=== PATIENT | male | born 1975 | race African-American/Black ===

== ENCOUNTER 2019-03-27 10:47 | Emergency (ER) | payer SELFPAY ==
[2014-05-10 13:44] VITALS: BP 122/77
[~2019-03-27] VITALS: Ht 175.3 cm; Wt 65.8 kg
[~2019-03-27 10:47] MED LIST: AMOX500C PO
[2019-03-27] MEDS ORDERED: HYDR25TA PO (11:10)
[2019-03-27] MEDS ORDERED: PRED50TA PO (11:10)
[2019-03-27] MEDS ORDERED: SULF1TAB24 PO (11:10)
[2019-03-27] MEDS ORDERED: MELO7.5T29 PO (11:10)
--- NOTE | 2019-03-27 11:10 | PHYS DOC ---
Past History Past Medical History: No Pertinent History, Pancreatitis Past Surgical History: No Surgical History Smoking: Cigarettes, Less than 1pk/day Alcohol Use: Heavy Additional Alcohol Information: Sixpack of beer daily Drug Use: Marijuana Adult General Chief Complaint Chief Complaint: INSECT BITE [facility] Patient is a 44-year-old male presents with left elbow discomfort. He believes he was bitten by a a wasp 2 days ago. No improvement with Benadryl. No fever. No nausea or vomiting. No difficulty breathing. No numbness or tingling. No discharge. Symptoms are mild to moderate. His last tetanus vaccine was within the past 5 years.[] Review of Systems Review of Systems Constitutional: Denies fever or chills [] Eyes: Denies change in visual acuity, redness, or eye pain [] HENT: Denies nasal congestion or sore throat [] Respiratory: Denies cough or shortness of breath [] Cardiovascular: No additional information not addressed in HPI [] GI: Denies abdominal pain, nausea, vomiting, bloody stools or diarrhea [] : Denies dysuria or hematuria [] Musculoskeletal: Denies back pain or joint pain [] Integument: See history of present illness[] Neurologic: Denies headache, focal weakness or sensory changes [] Endocrine: Denies polyuria or polydipsia [] All other systems were reviewed and found to be within normal limits, except as documented in this note. Allergies Allergies Allergies Coded Allergies Type Severity Reaction Last Updated Verified Penicillins Allergy Unknown Unknown 08/10/13 Yes Physical Exam Physical Exam Constitutional: Well developed, well nourished, no acute distress, non-toxic appearance. [] HENT: Normocephalic, atraumatic, bilateral external ears normal, oropharynx moist, no oral exudates, nose normal. [] Eyes: PERRLA, EOMI, conjunctiva normal, no discharge. [] Neck: Normal range of motion, no tenderness, supple, no stridor. [] Cardiovascular:Heart rate regular rhythm, no murmur [] Lungs & Thorax: Bilateral breath sounds clear to auscultation [] Abdomen: Not examined. [] Skin: Warm, dry, erythema and induration along the lateral aspect of his left elbow. Well demarcated edge. No fluctuance.No Axillary adenopathy. Full active range of motion of the elbow. Patient is distally neurovascularly intact. [] Back: No tenderness, no CVA tenderness. [] Extremities: No tenderness, no cyanosis, no clubbing, ROM intact, no edema. [] Neurologic: Alert and oriented X 3, normal motor function, normal sensory function, no focal deficits noted. [] Psychologic: Affect normal, judgement normal, mood normal. [] EKG EKG [] Radiology/Procedures Radiology/Procedures [] Course & Med Decision Making Course & Med Decision Making Pertinent Labs and Imaging studies reviewed. (See chart for details) Medical decision making: There is no evidence of need for incision and drainage. This appears to be either local Hymenoptera envenomation versus cellulitis. Th is does not appear to be IV drug abuse. Patient is not septic. No need for tetanus immunization updating. ED course: Patient arrived, was placed in bed, and tolerated exam well. Discussed findings and plan with patient who voiced understanding. All questions were answered. He was discharged in improved condition.[] Dragon Disclaimer Dragon Disclaimer This electronic medical record was generated, in whole or in part, using a voice recognition dictation system. Departure Departure: Impression: Primary Impression: Hymenoptera reaction Disposition: HOME, SELF-CARE Condition: STABLE Referrals: PCP,NO (PCP) Patient Instructions: Bee, Wasp, or Hornet Sting, Cellulitis Additional Instructions: Follow-up with your regular doctor in 2 days. If you do not have regular doctor list of local clinics will be provided. Apply warm compresses to the area for 15 minutes at a time, at least 4 times a day. Stop smoking. Take medication as prescribed. Return to the ER if worsening discomfort, difficulty breathing, fever of more than 101�, or any other concerns. Scripts Prednisone (PREDNISONE) 50 Mg Tablet 1 TAB PO DAILY for INFLAMMATION, #5 TAB Prov: ADDI NARANJO DO 03/27/19 Meloxicam (MELOXICAM) 7.5 Mg Tablet 7.5 MG PO DAILY for PAIN, #20 TAB Prov: ADDI NARANJO DO 03/27/19 Hydroxyzine Hcl (HYDROXYZINE HCL) 25 Mg Tablet 1 TAB PO TID for allergic reaction, #30 TAB Prov: ADDI NARANJO DO 03/27/19 Sulfamethoxazole/Trimethoprim (BACTRIM DS TABLET) 1 Each Tablet 1 TAB PO BID for cellulitis, #20 TAB Prov: ADDI NARANJO DO 03/27/19 Problem Qualifiers Primary Impression: Hymenoptera reaction Encounter type: initial encounter Injury intent: accidental or unintentional Qualified Codes: T63.441A - Toxic effect of venom of bees, accidental (unintentional), initial encounter ADDI NARANJO DO Mar 27, 2019 11:10
== END 2019-03-27 11:17 | disposition home or self-care (01) ==
LOC: ER 10:47
DX: T63.461A Toxic effect of venom of wasps, accidental (unintentional), initial encounter (principal); F17.210 Nicotine dependence, cigarettes, uncomplicated; F10.20 Alcohol dependence, uncomplicated; Z88.0 Allergy status to penicillin; Y90.9 Presence of alcohol in blood, level not specified; Y92.89 Other specified places as the place of occurrence of the external cause
CPT/HCPCS: 99283

== ENCOUNTER 2019-04-09 10:29 | Emergency (ER) | payer SELFPAY ==
[2019-03-27 10:56] VITALS: BP 122/81
[~2019-04-09] VITALS: Ht 177.8 cm; Wt 65.8 kg
[~2019-04-09 10:29] MED LIST changes: +HYDR25TA PO; +MELO7.5T29 PO; +PRED50TA PO; +SULF1TAB24 PO
--- NOTE | 2019-04-09 11:10 | PHYS DOC ---
Past History Past Medical History: No Pertinent History Past Surgical History: No Surgical History Smoking: Cigarettes, Less than 1pk/day Alcohol Use: Heavy Drug Use: Marijuana Adult General Chief Complaint Chief Complaint: RIB PAIN HPI HPI 44-year-old male presents with right rib pain. The patient was walking in his room last night around midnight when he actually walked into a door. He has had persistent right lower rib pain. It is difficult to take deep breaths. It hurts when he twists his body. He is concerned about fracture. He denies shortness of breath. He has no other injuries or complaints. Review of Systems Review of Systems Constitutional: Denies fever or chills [] Eyes: Denies change in visual acuity, redness, or eye pain [] HENT: Denies nasal congestion or sore throat [] Respiratory: Denies cough or shortness of breath [] Cardiovascular: No additional information not addressed in HPI [] GI: Denies abdominal pain, nausea, vomiting, bloody stools or diarrhea [] : Denies dysuria or hematuria [] Musculoskeletal: Right lower rib pain[] Integument: Denies rash or skin lesions [] Neurologic: Denies headache, focal weakness or sensory changes [] Endocrine: Denies polyuria or polydipsia [] All other systems were reviewed and found to be within normal limits, except as documented in this note. Allergies Allergies Allergies Coded Allergies Type Severity Reaction Last Updated Verified Penicillins Allergy Unknown Unknown 03/27/19 Yes Physical Exam Physical Exam Constitutional: Well developed, well nourished, no acute distress, non-toxic appearance. [] HENT: Normocephalic, atraumatic, bilateral external ears normal, oropharynx moist, no oral exudates, nose normal. [] Eyes: PERRLA, EOMI, conjunctiva normal, no discharge. [] Neck: Normal range of motion, no tenderness, supple, no stridor. [] Cardiovascular:Heart rate regular rhythm, no murmur [] Lungs & Thorax: Bilateral breath sounds clear to auscultation. Pain with palpation of the right lower ribs. No ecchymosis. [] Abdomen: Bowel sounds normal, soft, no tenderness, no masses, no pulsatile masses. [] Skin: Warm, dry, no erythema, no rash. [] Back: No tenderness, no CVA tenderness. [] Extremities: No tenderness, no cyanosis, no clubbing, ROM intact, no edema. [] Neurologic: Alert and oriented X 3, normal motor function, normal sensory function, no focal deficits noted. [] Psychologic: Affect normal, judgement normal, mood normal. [] EKG EKG [] Radiology/Procedures Radiology/Procedures [] Impressions: Three-view right rib detail series and PA view chest x-ray Clinical indications: Patient ran into door. Right lower rib pain. FINDINGS: No acute right rib fracture is evident. Chest x-ray demonstrates no acute lung infiltrate or pleural effusion or pulmonary edema or pneumothorax. Heart size is unremarkable. 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 Pulmonary vasculature is unremarkable. IMPRESSION: No acute right rib fracture. 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 There may be an increased risk of cardiac anomalies with this finding. Electronically signed by: Kathy Pina MD (04/09/2019 11:15 AM) [id number] DICTATED AND SIGNED BY: KATHY PINA MD DATE: 04/09/19 1115 CC: VINCENZO YU DO; PCP,NO ~ Course & Med Decision Making Course & Med Decision Making Pertinent Labs and Imaging studies reviewed. (See chart for details) The patient does not have any rib fractures. Incidentally, he appears a right- sided aortic arch. I have given the patient currently of his official read to take to his PCP. I will discharge the patient with a short course of [place] 5/325 for his discomfort. He appears to just have rib contusion. He is stable for discharge at this time. [] Dragon Disclaimer Dragon Disclaimer This electronic medical record was generated, in whole or in part, using a voice recognition dictation system. Departure Departure: Impression: Primary Impression: Contusion of rib on right side Disposition: HOME, SELF-CARE Condition: STABLE Referrals: PCP,NO (PCP) Patient Instructions: Rib Contusion Scripts Hydrocodone Bit/Acetaminophen (NORCO 5-325 TABLET) 1 Each Tablet 1 TAB PO PRN Q6HRS PRN for PAIN, #14 TAB 0 Refills Prov: VINCENZO YU DO 04/09/19 Problem Qualifiers Primary Impression: Contusion of rib on right side Encounter type: initial encounter Qualified Codes: S20.211A - Contusion of right front wall of thorax, initial encounter VINCENZO YU DO Apr 09, 2019 11:10
--- NOTE | 2019-04-09 11:18 | RAD ---
Three-view right rib detail series and PA view chest x-ray Clinical indications: Patient ran into door. Right lower rib pain. FINDINGS: No acute right rib fracture is evident. Chest x-ray demonstrates no acute lung infiltrate or pleural effusion or pulmonary edema or pneumothorax. Heart size is unremarkable. 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 Pulmonary vasculature is unremarkable. IMPRESSION: No acute right rib fracture. 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 There may be an increased risk of cardiac anomalies with this finding. Electronically signed by: Hector Pina MD (04/09/2019 11:15 AM) [id number]
[2019-04-09] MEDS ORDERED: HYDR-3165 PO (11:27)
== END 2019-04-09 11:35 | disposition home or self-care (01) ==
LOC: ER 10:29
DX: S20.211A Contusion of right front wall of thorax, initial encounter (principal); F17.210 Nicotine dependence, cigarettes, uncomplicated; F10.20 Alcohol dependence, uncomplicated; Z88.0 Allergy status to penicillin; Y90.9 Presence of alcohol in blood, level not specified; W22.09XA Striking against other stationary object, initial encounter; Y93.01 Activity, walking, marching and hiking; Y92.89 Other specified places as the place of occurrence of the external cause; Y99.8 Other external cause status
CPT/HCPCS: 71101; 99284

== ENCOUNTER 2019-08-02 09:00 | Emergency (ER) | payer SELFPAY ==
[~2019-08-02 09:00] MED LIST changes: +HYDR-3165 PO
[2019-08-02 09:10] VITALS: BP 117/78
--- NOTE | 2019-08-02 09:16 | PHYS DOC ---
Past History Past Medical History: No Pertinent History Past Surgical History: Appendectomy Smoking: Cigarettes, Less than 1pk/day Alcohol Use: Heavy Drug Use: Marijuana Adult General Chief Complaint Chief Complaint: LOWER EXT PAIN HPI HPI Patient is a 44-year-old male presents complaining of left foot pain. Patient does not recall any injury. He noted it on waking this morning. No pain medicines nor ice nor heat were applied. It does get worse with walking. He is able to weight-bear. No swelling or bruising is noted. No numbness or tingling. Pain is moderate to severe in intensity[] Review of Systems Review of Systems Constitutional: Denies fever or chills [] Eyes: Denies change in visual acuity, redness, or eye pain [] HENT: Denies nasal congestion or sore throat [] Respiratory: Denies cough or shortness of breath [] Cardiovascular: No chest pain or palpitations[] GI: Denies abdominal pain, nausea, vomiting, bloody stools or diarrhea [] : Denies dysuria or hematuria [] Musculoskeletal: Denies back pain, see history of present illness[] Integument: Denies rash or skin lesions [] Neurologic: Denies headache, focal weakness or sensory changes [] Endocrine: Denies polyuria or polydipsia [] All other systems were reviewed and found to be within normal limits, except as documented in this note. Current Medications Current Medications Current Medications Medications (Trade) Dose Ordered Sig/Stephen Start Time Stop Time Status Last Admin Dose Admin Ibuprofen (Motrin) 600 mg 1X ONCE 08/02/19 09:15 08/02/19 09:16 UNV Allergies Allergies Allergies Coded Allergies Type Severity Reaction Last Updated Verified Penicillins Allergy Unknown Unknown 03/27/19 Yes Physical Exam Physical Exam Constitutional: Well developed, well nourished, no acute distress, non-toxic appearance. [] HENT: Normocephalic, atraumatic, bilateral external ears normal, oropharynx m oist, no oral exudates, nose normal. [] Eyes: PERRLA, EOMI, conjunctiva normal, no discharge. [] Neck: Normal range of motion, no tenderness, supple, no stridor. [] Cardiovascular:Heart rate regular rhythm, no murmur [] Lungs & Thorax: Bilateral breath sounds clear to auscultation [] Abdomen: Bowel sounds normal, soft, no tenderness, no masses, no pulsatile masses. [] Skin: Warm, dry, no erythema, no rash. [] Back: No tenderness, no CVA tenderness. [] Extremities: Left foot has tenderness in the midfoot region in the middle of the foot to the lateral side. There is no specific base of the fifth metatarsal tenderness. No crepitus. No bruising. No ankle tenderness. A joint above and a joined below was evaluated and were normal. He was distally neurovascularly intact. The other 3 extremities show: No tenderness, no cyanosis, no clubbing, ROM intact, no edema. [] Neurologic: Alert and oriented X 3, normal motor function, normal sensory function, no focal deficits noted. [] Psychologic: Affect normal, judgement normal, mood normal. [] Current Patient Data Vital Signs Vital Signs Date Time Temp Pulse Resp B/P (MAP) Pulse Ox O2 Delivery O2 Flow Rate FiO2 08/02/19 09:10 87 18 97 Room Air EKG EKG [] Radiology/Procedures Radiology/Procedures Three-view x-ray of the left foot shows no evidence of a fracture or dislocation.[] Course & Med Decision Making Course & Med Decision Making Pertinent Labs and Imaging studies reviewed. (See chart for details) Emergency department course: Patient arrived, was placed in bed, and tolerated exam well. He was transported to and from radiology with any complications. He was given pain medicine in the emergency department. Findings and plan were discussed with the patient. He voiced understanding. A postop shoe was applied. He was distally neurovascularly intact after splint application. He was discharged in improved condition with all questions answered. Medical decision making: There is no evidence of a fracture or dislocation. No evidence of neurologic or vascular compromise. No radiopaque foreign body. [] Dragon Disclaimer Dragon Disclaimer This electronic medical record was generated, in whole or in part, using a voice recognition dictation system. Departure Departure: Impression: Primary Impression: Left foot pain Disposition: 01 HOME, SELF-CARE Condition: IMPROVED Referrals: PCPSELENA (PCP) Patient Instructions: Musculoskeletal Pain Additional Instructions: Follow-up with your regular doctor in 2 days. If you do not have regular doctor list of local clinics will be provided. Take the medicine as prescribed. Apply warm compresses for 15 minutes at a time, 4 times a day. Stop smoking! Return to the emergency department if worsening pain, weakness, or any other concerns. Scripts Meloxicam (MELOXICAM) 7.5 Mg Tablet 7.5 MG PO DAILY for PAIN, #20 TAB Prov: ADDI NARANJO DO 08/02/19 ADDI NARANJO DO Aug 02, 2019 09:16
[2019-08-02] MEDS ORDERED: MELO7.5T29 PO (09:28)
[2019-08-02] MEDS ORDERED: IBUPROFEN 600 MG TABLET. PO ONE (09:30)
--- NOTE | 2019-08-02 09:45 | RAD ---
Examination: 3 views of the left foot HISTORY: History of mid, lateral pain COMPARISON: None available FINDINGS: The alignment of the tarsal bones, tarsometatarsal joints, metatarsophalangeal joints, interphalangeal joints grossly appears unremarkable. Mild hallux valgus is identified. Mild degenerative changes first MTP joint. IMPRESSION: 1. No acute osseous findings. 2. Mild hallux valgus. Electronically signed by: Victor Hugo Marquez MD (08/02/2019 9:42 AM) [facility]
== END 2019-08-02 09:45 | disposition home or self-care (01) ==
LOC: ER 09:00
DX: M79.672 Pain in left foot (principal); F10.20 Alcohol dependence, uncomplicated; F17.210 Nicotine dependence, cigarettes, uncomplicated; Z88.0 Allergy status to penicillin; Y90.9 Presence of alcohol in blood, level not specified
CPT/HCPCS: 73630; 99284

== ENCOUNTER 2019-09-24 09:16 | Emergency (ER) | payer SELFPAY ==
[~2019-09-24] VITALS: Ht 175.3 cm; Wt 65.0 kg
[2019-09-24 09:27] VITALS: BP 137/95
[2019-09-24] MEDS ORDERED: KETOROLAC 30 MG/ML VIAL. ONE (09:36)
[2019-09-24] MEDS ORDERED: KETOROLAC 60 MG/2 ML VIAL. IM ONE (09:45)
--- NOTE | 2019-09-24 10:02 | RAD ---
Examination: 2 views of the left shoulder HISTORY: History of left shoulder pain COMPARISON: None available FINDINGS: The humerus head is within the glenoid. Mild degenerative changes identified in the glenohumeral joint, acromioclavicular joints. IMPRESSION: No acute osseous findings. Electronically signed by: Victor Hugo Marquez MD (09/24/2019 9:59 AM) [facility] – [place], [place]
--- NOTE | 2019-09-24 10:17 | PHYS DOC ---
Past History Past Medical History: No Pertinent History Past Surgical History: No Surgical History Smoking: Cigarettes, Less than 1pk/day Alcohol Use: Heavy Drug Use: Marijuana Adult General Chief Complaint Chief Complaint: [facility] HPI Patient is a 44-year-old male with shoulder pain onset 2 weeks ago left shoulder hurts more to lie on it hard to sleep hurts more lifted up over his head hurts more to touch it. Especially under the armpit. Patient is a smoker he does drink alcohol he smokes marijuana he denies any other drugs no IV drugs no fever denies blunt trauma not having any anginal symptoms no abdominal pain. Patient does not have a primary care doctor no daily medications. Symptoms are moderate slowly worsening with tract time he tried a heating pad with minimal relief Review of Systems Review of Systems Constitutional: Denies fever or chills [] Eyes: Denies change in visual acuity, redness, or eye pain [] HENT: Denies nasal congestion or sore throat [] Respiratory: Denies cough or shortness of breath [] Cardiovascular: No additional information not addressed in HPI [] All other systems were reviewed and found to be within normal limits, except as documented in this note. Current Medications Current Medications Current Medications Medications (Trade) Dose Ordered Sig/Stephen Start Time Stop Time Status Last Admin Dose Admin Ketorolac Tromethamine (Toradol 30mg Vial) 30 mg STK-MED ONCE 09/24/19 09:36 09/24/19 09:36 DC Ketorolac Tromethamine (Toradol Im) 30 mg 1X ONCE 09/24/19 09:45 09/24/19 09:46 DC 09/24/19 09:40 30 MG Allergies Allergies Allergies Coded Allergies Type Severity Reaction Last Updated Verified Penicillins Allergy Unknown Unknown 03/27/19 Yes Physical Exam Physical Exam Constitutional: Well developed, mild cachexia noted HENT: Normocephalic, atraumatic, bilateral external ears normal, oropharynx moist, no oral exudates, nose normal. [] Eyes: PERRLA, EOMI, conjunctiva normal, no discharge. [] Neck: Normal range of motion, no tenderness, supple, no stridor. [] Cardiovascular:Heart rate regular rhythm, no murmur [] Lungs & Thorax: Bilateral breath sounds clear to auscultation [] Abdomen: Bowel sounds normal, soft, no tenderness, no masses, no pulsatile masses. [] Skin: Acne noted Back: No tenderness, no CVA tenderness. [] Extremities: Tenderness to palpation diffusely about the left shoulder range of motion is actually fairly intact but elevation of the shoulder above 180 does lead to reproducing of the pain. In addition palpation of the junction of the left pectoralis muscle at the level of the shoulder also leads to some discomfort. Abdominal examination is nontender. Patient is neurologically intact distally in the affected extremity radial pulses present and sensation is intact. Neurologic: Alert and oriented X 3, normal motor function, normal sensory function, no focal deficits noted. [] Psychologic: Affect normal, judgement normal, mood normal. [] Current Patient Data Vital Signs Vital Signs Date Time Temp Pulse Resp B/P (MAP) Pulse Ox O2 Delivery O2 Flow Rate FiO2 09/24/19 09:27 97.9 77 18 137/95 (109) 99 Room Air EKG EKG [] Radiology/Procedures Radiology/Procedures [] Course & Med Decision Making Course & Med Decision Making Pertinent Labs and Imaging studies reviewed. (See chart for details) []X-ray revealed by the radiologist negative acute. Patient likely has some sort of internal arrangement of the left shoulder perhaps a rotator cuff tendinopathy. At this point time medical screening exam is complete patient is unlikely to have any significant medical condition to lead to morbidity mortality loss of life or limb. Patient is having no chest pain no anginal symptoms does not sound cardiac at all reproducible on examination and it's been going on for 2 weeks or more Dragon Disclaimer Dragon Disclaimer This electronic medical record was generated, in whole or in part, using a voice recognition dictation system. Departure Departure: Impression: Primary Impression: Shoulder pain Disposition: HOME, SELF-CARE Condition: STABLE Referrals: PCP,SELENA (PCP) COLLIN LI MD Sep 24, 2019 10:17
== END 2019-09-24 10:52 | disposition home or self-care (01) ==
LOC: ER 09:16
DX: M25.512 Pain in left shoulder (principal); F17.210 Nicotine dependence, cigarettes, uncomplicated; Z88.0 Allergy status to penicillin
CPT/HCPCS: 73030; 96372; 99283; J1885

== ENCOUNTER 2020-09-12 08:25 | Emergency (ER) | payer SELFPAY ==
[~2020-09-12] VITALS: Ht 175.3 cm; Wt 65.0 kg
[2020-09-12 08:26] VITALS: BP 102/72
[2020-09-12] MEDS ORDERED: ONDANSETRON ODT 4 MG TAB.RAPDIS PO ONE (08:45)
[2020-09-12] MEDS ORDERED: DEXAMETHASONE 4 MG TABLET PO ONE (08:45)
[2020-09-12] MEDS ORDERED: ONDA4TAB12 PO (08:56)
[2020-09-12] MEDS ORDERED: PRED20TA PO (08:56)
[2020-09-12] MEDS ORDERED: PERM60CR12 TP (08:56)
--- NOTE | 2020-09-12 09:05 | PHYS DOC ---
Past History Past Medical History: No Pertinent History Past Surgical History: No Surgical History Smoking: Cigarettes, Less than 1pk/day Alcohol Use: Heavy Drug Use: Marijuana General Adult EDM: Chief Complaint: COUGH HPI: HPI: 45-year-old male presents with 1 day history of subjective fever and chills with associated cough and body aches. Reports yesterday did notice some nasal congestion. Reports also this morning with some nausea and vomiting. Denies known sick contacts. Denies known exposure to COVID-19. Patient also reports 1 week history of pruritic rash primarily to his forearms. Reports concerned that "something is biting me ". Review of Systems: Review of Systems: Constitutional: Reports subjective fever and chills and body aches Eyes: Denies redness or eye pain HENT: Reports nasal congestion; denies sore throat Respiratory: Reports cough; denies shortness of breath Cardiovascular: Denies chest pain or palpitations GI: Denies abdominal pain; reports nausea and vomiting : Denies dysuria or hematuria Musculoskeletal: Denies back pain or joint pain Integument: Reports pruritic rash Neurologic: Denies headache, focal weakness or sensory changes Complete systems were reviewed and found to be within normal limits, except as documented in this note. Current Medications: Current Meds: Current Medications Medications (Trade) Dose Ordered Sig/Stephen Start Time Stop Time Status Last Admin Dose Admin Dexamethasone (Decadron) 10 mg 1X ONCE 09/12/20 08:45 09/12/20 08:46 UNV Ondansetron HCl (Zofran Odt) 4 mg 1X ONCE 09/12/20 08:45 09/12/20 08:46 UNV Allergies: Allergies: Allergies Coded Allergies Type Severity Reaction Last Updated Verified Penicillins Allergy Unknown Unknown 03/27/19 Yes Physical Exam: PE: Constitutional: Well developed, well nourished, no acute distress, non-toxic appearance HENT: Normocephalic, atraumatic Eyes: Conjunctiva normal, no discharge Neck: Normal range of motion, supple Lungs & Thorax: No respiratory distress, equal chest rise and fall Abdomen: Soft, no tenderness, no guarding/rebound tenderness/distention Skin: Warm, dry, no erythema, healing pruritic rash noted to bilateral forearms Extremities: No tenderness, ROM intact, no edema Neurologic: Alert and oriented X 3, no focal deficits noted Psychologic: Affect normal, judgment normal EKG: EKG: [] Radiology/Procedures: Radiology/Procedures: PROCEDURE: CHEST AP ONLY AP chest. HISTORY: Cough, Covid-19 AP view was taken of the chest. Lungs are clear. Heart is normal in size. There is no effusion. IMPRESSION: 1. No acute chest disease. Electronically signed by: Callum Grant MD (09/12/2020 9:51 AM) [id number] Course & Med Decision Making: Course & Med Decision Making Pertinent Labs and Imaging studies reviewed. (See chart for details) Patient with concern for possible COVID-19. COVID-[address] COVID-19 testing pending. Chest x-ray without acute process. Symptomatic treatment provided. Patient also with some pruritic rash. Steroid provided. Cannot fully exclude scabies. Will prescribe permethrin. Patient stable for discharge with outpatient follow-up with PCP. Discussed findings and plan with patient, who acknowledges understanding and agreement. COVID-19 CRITERIA: The patient was evaluated during the global COVID-19 pandemic, and that diagnosis was suspected/considered upon their initial presentation. Their evaluation, treatment and testing was consistent with current guidelines for patients who present with complaints or symptoms that may be related to COVID-19. Jess Disclaimer: Dragon Disclaimer: This electronic medical record was generated, in whole or in part, using a voice recognition dictation system. Departure Departure: Impression: Primary Impression: Suspected COVID-19 virus infection Additional Impressions: Nausea and vomiting Qualified Codes: R11.2 - Nausea with vomiting, unspecified Pruritic rash Disposition: 01 ME HOME SELF CARE/HOMELESS Condition: STABLE Referrals: PCP,NO (PCP) Patient Instructions: Clear Liquid Diet, [id number], Nausea and Vomiting, [id number], Rash, Ggba-ke-Igde, Scabies, Viral Syndrome Additional Instructions: You have been tested for or diagnosed with COVID-19. It is an infection caused by a new type of coronavirus. COVID-19 will cause cold-like or mild flu symptoms in most. It can cause more severe symptoms like problems breathing in some. There is no treatment for COVID-19. The body will clear the infection over time. Self-care will help to ease discomfort. Steps to Take: Self-Care Rest as needed. Healthy habits may help you feel better. Steps include: Choose healthy foods including fruits and vegetables. Drink water throughout the day. Get plenty of sleep each night. If you smoke, try to quit. It may ease breathing. Avoid alcohol. Keep Others Healthy The virus can spread to others. Droplets are released every time you sneeze or cough. The droplets can get into the mouth, nose, or eyes of people near you and lead to infection. To lower the chances of spreading COVID-19 to others: Stay at home until your doctor has said it is safe to leave. If you tested positive this will mean staying isolated until both of the following are true: At least 7 days have passed since the start of illness. You are free of fever for at least 72 hours without the use of medicine. During this time: - Avoid public areas, events, or transportation. Do not return to work or school until your doctor has said it is safe to do so. - Call ahead if you need to go to a medical center. Let them know you may have COVID-19. It will help them guide you where to go. They may also ask you to wear a facemask when you come to the office. - If you call for emergency medical services, let them know you may have COVID- 19. While at home: - Try to avoid close contact with others. Stay about 6 feet away. - If possible, spend most of your time in a separate room from others. - Use a face mask if you will be in close contact with others such as sharing a room or vehicle. - Have someone wipe down common surfaces in the home. Use household lacquer mixer every day on areas like doorknobs, counters, or sinks. - Cough or sneeze into a tissue. Throw the tissue away right after use. If a tissue is not available, cough or sneeze into your elbow. - Wash your hands often. Wash them after sneezing or coughing. Use soap and water and wash for at least 20 seconds. Alcohol based hand telephone cleaner can be used if soap and water is not available. - Do not prepare food for others. Avoid sharing personal items like forks, spoons, or toothbrushes. - Avoid close contact with pets while you are sick. There is no evidence of the virus passing to pets. This is a safety step until more is known about this virus. Isolation can be frustrating. Social interaction can help. Keep in touch with friends and family through phone and tech options. You can still interact with others in your home, just keep a safe distance of about 6 feet. Follow-up: Your doctors office will check in with you to see if there are any changes in your health. You may be asked to keep track of symptoms to share with them. They will also let you know when you are clear to be in public again. Problems to Look Out For: Contact your doctor if your recovery is not going as you expect. Get emergency care if you have problems such as: - Trouble breathing - Nonstop chest pain or pressure - Changes in awareness, confusion, or problems waking - Lips or face have bluish color - Worsening of symptoms If you think you have an emergency, call for emergency medical services right away. As taken from [facility] Permethrin (PERMETHRIN) 60 Gm Cream..g. 1 KASIA TP ONCE for Rash, #60 GM Leave on for 12 hours. Prov: JULIA ROJO DO 09/12/20 Prednisone (PREDNISONE) 20 Mg Tablet 2 TAB PO DAILY for Rash, #8 TAB Start this prescription tomorrow, Saturday09/13/20 Prov: JUILA ROJO DO 09/12/20 Ondansetron (ONDANSETRON ODT) 4 Mg Tab.rapdis 1 TAB PO PRN Q6-8HRS PRN for NAUSEA, #16 TAB Prov: JULIA ROJO DO 09/12/20 COVID-19 Assessment COVID-19 Patient Risks: Age 65 or older: No Sign of co-morbidity: No Exp to person + for COVID: No Exp to PUI: No Travel from affected area: No Lower respiratory symptoms: Yes Fever: Yes Other: Yes PPE Use: Full PPE with N95 mask or PAPR: Yes JULIA ROJO DO Sep 12, 2020 09:05
--- NOTE | 2020-09-12 10:01 | RAD ---
AP chest. HISTORY: Cough, Covid-19 AP view was taken of the chest. Lungs are clear. Heart is normal in size. There is no effusion. IMPRESSION: 1. No acute chest disease. Electronically signed by: Callum Grant MD (09/12/2020 9:51 AM) [id number]
== END 2020-09-12 09:39 | disposition home or self-care (01) ==
LOC: ER 08:25
DX: R11.2 Nausea with vomiting, unspecified (principal); L29.9 Pruritus, unspecified; R21 Rash and other nonspecific skin eruption; F17.210 Nicotine dependence, cigarettes, uncomplicated; F10.20 Alcohol dependence, uncomplicated; Z20.822 Contact with and (suspected) exposure to COVID-19; Z88.0 Allergy status to penicillin; Y90.9 Presence of alcohol in blood, level not specified
CPT/HCPCS: 71045; 99284; C9803; J8540; Q0162; U0003

== ENCOUNTER 2020-09-20 20:24 | Emergency (ER) | payer SELFPAY ==
[~2020-09-20] VITALS: Ht 175.3 cm; Wt 65.0 kg
[~2020-09-20 20:24] MED LIST changes: +ONDA4TAB12 PO; +PERM60CR12 TP; +PRED20TA PO
--- NOTE | 2020-09-20 20:57 | EKG ---
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
--- NOTE | 2020-09-20 21:14 | PHYS DOC ---
Past History Past Medical History: Arthritis Past Surgical History: No Surgical History Smoking: Cigarettes, Less than 1pk/day Alcohol Use: Heavy Drug Use: Marijuana Adult General Chief Complaint Chief Complaint: CHEST PAIN HPI HPI Patient is a 45-year-old male presents emergency department complaining of chest pains for the past hour. Patient states that it is on the left side of his chest and does not radiate. Patient denies diaphoretic episode, denies shortness of breath. Patient states that he was seen here last Saturday for a cough and scabies. Patient states his cough has resolved and his scabies problem has resolved. Patient states he is also having low back pain that does not radiate. Patient denies any loss of bowel or bladder, patient denies any numbness or tingling to his buttocks or legs patient states he fears he might have kidney problems as his father had end-stage kidney disease when he of liver failure. Patient reports his pain a 6/10 on a 1-10 pain scale. Patient denies chest pain or chest discomfort or shortness of breath or chest p alpitations at this time. Patient denies nasal congestion or chest congestion. Patient denies abdominal pain, nausea, vomiting, diarrhea, or constipation. Patient denies COVID-19 symptoms, states he had a COVID-19 test just this past week which was negative and does not wish to be tested today patient denies having a flu shot in 2019, patient has not had a COVID-19 virus immunization. Review of Systems Review of Systems 14 body systems of review of systems have been reviewed. See HPI for pertinent positives and negative responses, otherwise all other systems are negative, nonpertinent or noncontributory. Family History Family History Patient reports his mother of cancer however he does not know what type, patient states his dad had a history of kidney failure but of liver disease. Allergies Allergies Allergies Coded Allergies Type Severity Reaction Last Updated Verified Penicillins Allergy Unknown Unknown 03/27/19 Yes Physical Exam Physical Exam Constitutional: Well developed, well nourished, no acute distress, non-toxic appearance. 45-year-old male in no apparent distress, patient is complaint of pain exceeds his physical appearance. HENT: Normocephalic, atraumatic, bilateral external ears normal, oropharynx moist, no oral exudates, nose normal. Eyes: PERRLA, EOMI, conjunctiva normal, no discharge. Neck: Normal range of motion, no tenderness, supple, no stridor. Cardiovascular:Heart rate regular rhythm, no murmur, heart sounds S1-S2. Lungs & Thorax: Bilateral breath sounds clear to auscultation all lung laboy. Patient denies chest pain at this time. Abdomen: Bowel sounds normal, soft, no tenderness, no masses, no pulsatile masses. Skin: Warm, dry, no erythema, no rash. Back: No left-sided or right-sided CVA tenderness, left and right sided lumbar tenderness to palpation, no midline spine tenderness appreciated. No numbness or tingling down the lower extremities, neurovascular intact, 2+ dorsalis pedis/posterior tibial pulses, distal cap refill less than 2 seconds. Extremities: No tenderness, no cyanosis, no clubbing, ROM intact, no edema. Neurologic: Alert and oriented X 3, normal motor function, normal sensory function, no focal deficits noted. Psychologic: Affect normal, judgement normal, mood normal. Current Patient Data Lab Results Laboratory Tests Test 09/20/20 20:55 White Blood Count 10.0 x10^3/uL Red Blood Count 4.50 x10^6/uL Hemoglobin 14.6 g/dL Hematocrit 44.3 % Mean Corpuscular Volume 99 fL Mean Corpuscular Hemoglobin 33 pg Mean Corpuscular Hemoglobin Concent 33 g/dL Red Cell Distribution Width 14.2 % Platelet Count 265 x10^3/uL Neutrophils (%) (Auto) 73 % Lymphocytes (%) (Auto) 20 % Monocytes (%) (Auto) 7 % Eosinophils (%) (Auto) 1 % Basophils (%) (Auto) 0 % Neutrophils # (Auto) 7.3 x10^3uL Lymphocytes # (Auto) 2.0 x10^3/uL Monocytes # (Auto) 0.7 x10^3/uL Eosinophils # (Auto) 0.0 x10^3/uL Basophils # (Auto) 0.0 x10^3/uL Sodium Level 139 mmol/L Potassium Level 3.6 mmol/L Chloride Level 102 mmol/L Carbon Dioxide Level 28 mmol/L Anion Gap 9 Blood Urea Nitrogen 9 mg/dL Creatinine 0.9 mg/dL Estimated GFR (Cockcroft-Gault) 110.4 BUN/Creatinine Ratio 10 Glucose Level 104 mg/dL Calcium Level 8.5 mg/dL Magnesium Level 2.2 mg/dL Total Bilirubin 0.8 mg/dL Aspartate Amino Transf (AST/SGOT) 18 U/L Alanine Aminotransferase (ALT/SGPT) 20 U/L Alkaline Phosphatase 66 U/L Creatine Kinase 74 U/L Creatine Kinase MB (Mass) < 0.5 ng/mL Creatine Kinase MB Relative Index 0.7 % Troponin I Quantitative < 0.017 ng/mL Total Protein 7.4 g/dL Albumin 3.7 g/dL Albumin/Globulin Ratio 1.0 Current Medications Medications (Trade) Dose Ordered Sig/Stephen Route PRN Reason Start Time Stop Time Status Last Admin Dose Admin Lactated Ringer's 1,000 ml @ 0 mls/hr 1X ONCE IV 09/20/20 21:15 09/20/20 21:23 DC 09/20/20 21:15 Ketorolac Tromethamine (Toradol 30mg Vial) 30 mg 1X ONCE IVP 09/20/20 22:00 09/20/20 22:03 DC Acetaminophen/ Hydrocodone Bitart (Lortab 5/325) 2 tab 1X ONCE PO 09/20/20 22:00 09/20/20 22:03 DC EKG EKG EKG performed at 2043 by respiratory therapy staff, shows a normal sinus rhythm without ectopy at a heart rate of 74 bpm, Q TC interval 0.411, KS interval 0.168, no acute STEMI, no ACS, no acute ischemia appreciated, EKG interpreted by ED attending physician Dr. Burgos. Radiology/Procedures Radiology/Procedures []PATIENT: ARNAUD LUNDBERG LACCOUNT: [id number]#: [id number] : 1975 LOCATION: ER AGE: 45 SEX: M EXAM STATUS: REG ER ORD. PHYSICIAN: JULIA MCODNOUGH APRN REASON: CHEST PAIN PROCEDURE: CHEST PA & LATERAL XR CHEST 2V Technique: PA and lateral views of the chest were obtained. Clinical History: Reason: CHEST PAIN / Spl. Instructions: / History: Comparison: September 12, 2020. Findings: The heart and pulmonary vasculature appear within normal limits. The lungs are clear. The pleural margins are clear. Impression: No acute chest process is seen. Electronically signed by: Nataliia Kruger III, MD (09/20/2020 9:11 PM) [facility] DICTATED AND SIGNED BY: NATALIIA KRUGER III, MD DATE: 09/20/202109 CC: JULIA MCDONOUGH APRN; EMERGENCY,DEPARTMENT; PCP,NO ~MTH0 0 Heart Score HEART Score for Chest Pain: HEART Score for Chest Pain Response (Comments) Value History Slighlty/Non-Suspicious 0 ECG Normal 0 Age >45 - < 65 1 Risk Factors 1 or 2 Risk Factors 1 Troponin < Normal Limit 0 Total 2 Risk Factors: Risk Factors: DM, Current or recent (<one month) smoker, HTN, HLP, family history of CAD, obesity. Risk Scores: Risk Factors: DM, Current or recent (<one month) smoker, HTN, HLP, family history of CAD, obesity. Course & Med Decision Making Course & Med Decision Making Pertinent Labs and Imaging studies reviewed. (See chart for details) 45-year-old male, vital signs reviewed, presents emergency department complaining of chest pains and low back pains. Patient has concerned that this is either his heart or his kidneys. Patient's physical examination was unremarkable. No saddle anesthesia, unlikely cauda equina. An ER work-up was initiated, EKG, cardiac labs, chest x-ray, urine assay. Patient's chest x-ray was unremarkable, patient's serum lab work was unremarkable, patient did not give a urine sample. Discussed findings with patient, patient states that he has having no pain at this time. Patient gave verbal understanding of discharge home instructions, follow-up with primary care for ongoing aches and pains, return to ER precautions and concerns, was discharged home without incident. Patient's chest pain is most likely chest wall pain related to coughing 2 weeks ago, patient does have a history of sciatica pain, patient's back pain most likely lumbago. Dragon Disclaimer Dragon Disclaimer This electronic medical record was generated, in whole or in part, using a voice recognition dictation system. Departure Departure: Impression: Primary Impression: Chest wall pain Additional Impression: Lumbago Disposition: 01 DC HOME SELF CARE/HOMELESS Condition: GOOD Referrals: PCP,NO (PCP) Patient Instructions: Back Pain in , Chest Wall Pain Additional Instructions: Please take prescriptions as directed, follow-up with your primary care doctor for ongoing aches and pains, return to the emergency department for worsening symptoms or other concerns. EMERGENCY DEPARTMENT GENERAL DISCHARGE INSTRUCTIONS Thank you for coming to [facility] (ED) today and trusting us with you care. We trust that you had a positivie experience in our Emergency Department. If you wish to speak to the department management, you may call the director at [phone]. YOUR FOLLOW UP INSTRUCTIONS ARE FOLLOWS: 1. Do you have a private Doctor? If you do not have a private doctor, please ask for a resource list of physicians or clinics that may be able to assist you with follow up care. 2. The Emergency Physician has interpreted your x-rays. The X-Ray specialist will also review them. If there is a change in the findings, you will be notified in 48 hours when at all possible. 3. A lab test or culture has been done, your results will be reviewed and you will be notified if you need a change in treatment. ADDITIONAL INSTRUCTIONS AND INFORMATION: 1. Your care today has been supervised by a physician who is specially trained in emergency care. Many problems require more than one evaluation for a complete diagnosis and treatment. We recommend that you schedule your follow up appointment as recommended to ensure complete treatment of you illness or injury. If you are unable to obtain follow up care and continue to have a problem, or if your condition worsens, we recommend that you return to the ED. 2. We are not able to safely determine your condition over the phone nor are we able to give sound medical advice over the phone. For these safety reasons, if you call for medical advice we will ask you to come to the ED for further evaluation. 3. If you have any questions regarding these discharge instructions please call the ED at [phone]. SAFETY INFORMATION: In the interest of safety, wellness, and injury prevention; we encourage you to wear your sealbelt, if you smoke; quite smoking, and we encourage family to use a protective helmet for bicycling and other sporting events that present an increased risk for head injury. IF YOUR SYMPTOMS WORSEN OR NEW SYMPTOMS DEVELOP, OR YOU HAVE CONCERNS ABOUT YOUR CONDITION; OR IF YOUR CONDITION WORSENS WHILE YOU ARE WAITING FOR YOUR FOLLOW UP APPOINTMENT; EITHER CONTACT YOUR PRIMARY CARE DOCTOR, THE PHYSICIAN WHOSE NAME AND NUMBER YOU WERE GIVEN, OR RETURN TO THE ED IMMEDIATELY. Scripts Ibuprofen (IBUPROFEN) 600 Mg Tablet 600 MG PO TID PRN PRN for PAIN, #20 TAB 0 Refills Prov: JULIA MCDONOUGH APRN 09/20/20 Cyclobenzaprine Hcl (CYCLOBENZAPRINE HCL) 10 Mg Tablet 1 TAB PO TID PRN PRN for PAIN, #12 TAB 0 Refills Prov: JULIA MCDONOUGH APRN 09/20/20 Problem Qualifiers Additional Impression: Lumbago Chronicity: acute Back pain laterality: bilateral Sciatica presence: without sciatica Qualified Codes: M54.5 - Low back pain JULIA MCDONOUGH APRN Sep 20, 2020 21:14
[2020-09-20] MEDS ORDERED: IV RINGERS SOLUTION,LACTATED 1,000 ML IV ONE (21:15)
[2020-09-20 21:33] LABS: BASO % 0 % (0-3); EOS % 1 % (0-3); HEMATOCRIT 44.3 % (39.0-53.0); HEMOGLOBIN 14.6 g/dL (13.0-17.5); LYMPH % 20 % (24-48); MEAN CORPUSCULAR HEMOGLOBIN 33 pg (25-35); MEAN CORPUSCULAR HGB CONC 33 g/dL (31-37); MEAN CORPUSCULAR VOLUME 99 fL (79-100); MONO # 0.7 x10^3/uL (0.0-1.1); MONO % 7 % (0-9); NEUT # 7.3 x10^3uL (1.8-7.7); NEUT % 73 % (31-73); PLATELET COUNT 265 x10^3/uL (140-400); RED CELL DISTRIBUTION WIDTH 14.2 % (11.5-14.5)
[2020-09-20 21:36] LABS: ANION GAP 9 (6-14); BLOOD UREA NITROGEN 9 mg/dL (8-26); BUN/CREATININE RATIO 10 (6-20); CALCIUM 8.5 mg/dL (8.5-10.1); CARBON DIOXIDE 28 mmol/L (21-32); CHLORIDE 102 mmol/L (98-107); CREATININE 0.9 mg/dL (0.7-1.3); GFR 110.4; GLUCOSE 104 mg/dL (70-99); POTASSIUM 3.6 mmol/L (3.5-5.1); SODIUM 139 mmol/L (136-145)
[2020-09-20 21:51] LABS: ALBUMIN 3.7 g/dL (3.4-5.0); ALK PHOS 66 U/L (46-116); ALT (SGPT) 20 U/L (16-63); AST (SGOT) 18 U/L (15-37); MAGNESIUM 2.2 mg/dL (1.8-2.4); TOTAL BILIRUBIN 0.8 mg/dL (0.2-1.0); TOTAL PROTEIN 7.4 g/dL (6.4-8.2)
[2020-09-20] MEDS ORDERED: HYDROcodone/APAP 5/325MG 1 TAB TABLET PO ONE (22:00)
[2020-09-20] MEDS ORDERED: KETOROLAC 30 MG/ML VIAL. IVP ONE (22:00)
[2020-09-20] MEDS ORDERED: IBUP600T16 PO (22:10)
[2020-09-20] MEDS ORDERED: CYCL-331 PO (22:10)
[2020-09-20 22:50] VITALS: BP 132/83
== END 2020-09-20 23:15 | disposition home or self-care (01) ==
LOC: ER 20:24
DX: R07.89 Other chest pain (principal); M54.5 Low back pain; M19.90 Unspecified osteoarthritis, unspecified site; F10.20 Alcohol dependence, uncomplicated; Z88.0 Allergy status to penicillin; Y90.9 Presence of alcohol in blood, level not specified
CPT/HCPCS: 36415; 71046; 80053; 82553; 83735; 84484; 85025; 93005; 96361; 96374; 99285; J1885; J7120

== ENCOUNTER 2020-12-05 14:18 | Emergency (ER) | payer SELFPAY ==
[~2020-12-05] VITALS: Ht 175.3 cm; Wt 64.5 kg
[~2020-12-05 14:18] MED LIST changes: +CYCL-331 PO; +IBUP600T16 PO
[2020-12-05 15:30] VITALS: BP 120/83
== END 2020-12-05 15:50 | disposition home or self-care (01) ==
LOC: ER 14:18
DX: S00.81XA Abrasion of other part of head, initial encounter (principal); S00.31XA Abrasion of nose, initial encounter; S80.212A Abrasion, left knee, initial encounter; M25.512 Pain in left shoulder; F17.210 Nicotine dependence, cigarettes, uncomplicated; Z88.0 Allergy status to penicillin; W01.0XXA Fall on same level from slipping, tripping and stumbling without subsequent striking against object, initial encounter; Y93.89 Activity, other specified; Y92.89 Other specified places as the place of occurrence of the external cause; Y99.8 Other external cause status
CPT/HCPCS: 70450; 70486; 72125; 73030; 73560; 96372; 99285; J1885; Q0163

== ENCOUNTER 2021-01-08 12:55 | Emergency (ER) | payer SELFPAY ==
[~2021-01-08] VITALS: Ht 177.8 cm; Wt 64.6 kg
[2021-01-08 13:21] VITALS: BP 125/88
[2021-01-08] MEDS ORDERED: CEPH500T PO (13:54)
--- NOTE | 2021-01-08 13:54 | PHYS DOC ---
Past History Past Medical History: No Pertinent History Past Surgical History: No Surgical History Smoking: Cigarettes, Less than 1pk/day Alcohol Use: Heavy Drug Use: Marijuana General Adult EDM: Chief Complaint: KNEE INJURY HPI: HPI: 45-year-old male presents with right knee pain. The patient has been having intermittent knee pain for a couple of months. He does not recall any particular event that started the pain. It was worse for a week or 2 and then got better, but did not go away. Over the last 1 week, the patient has had more pain and it is making it harder to walk. Weightbearing and walking causes the most pain. The pain subsides when the is not weightbearing. He is not having any swelling. The pain is right across the center of the knee on both sides. The patient further complains of red erythematous skin around the umbilicus. He is concerned about infection. Finally, the patient has been having itching in his groin region. He has not had sex in several years so is not concerned about STD. He has not seen a rash and does not understand why continues to be pruritic. Review of Systems: Review of Systems: Constitutional: Denies fever or chills Eyes: Denies change in visual acuity HENT: Denies nasal congestion or sore throat Respiratory: Denies cough or shortness of breath Cardiovascular: Denies chest pain or edema GI: Denies abdominal pain, nausea, vomiting, bloody stools or diarrhea : Denies dysuria Musculoskeletal: Denies back pain or joint pain Integument: Itchy groin skin, erythematous skin around the umbilicus Neurologic: Denies headache, focal weakness or sensory changes Endocrine: Denies polyuria or polydipsia Lymphatic: Denies swollen glands Psychiatric: Denies depression or anxiety Allergies: Allergies: Allergies Coded Allergies Type Severity Reaction Last Updated Verified Penicillins Allergy Unknown Unknown 03/27/19 Yes Physical Exam: PE: Constitutional: Well developed, well nourished, no acute distress, non-toxic appearance. [] HENT: Normocephalic, atraumatic, bilateral external ears normal, oropharynx moist, no oral exudates, nose normal. [] Eyes: PERRLA, EOMI, conjunctiva normal, no discharge. [] Neck: Normal range of motion, no tenderness, supple, no stridor. [] Cardiovascular: Heart rate regular rhythm, no murmur [] Lungs & Thorax: Bilateral breath sounds clear to auscultation [] Abdomen: Bowel sounds normal, soft, no tenderness, no masses, no pulsatile masses. [] Skin: Erythematous skin around the umbilicus consistent with cellulitis. No palpable abscess. Skin around the groin has no rash, there is some dry skin. [] Back: No tenderness, no CVA tenderness. [] Extremities: Right knee with mild joint line tenderness, no ligament laxity. No swelling or ecchymosis. [] Neurologic: Alert and oriented X 3, normal motor function, normal sensory funct ion, no focal deficits noted. [] Psychologic: Affect normal, judgement normal, mood normal. [] Current Patient Data: Vital Signs: Vital Signs Date Time Temp Pulse Resp B/P (MAP) Pulse Ox O2 Delivery O2 Flow Rate FiO2 01/08/21 13:21 97.9 78 18 125/88 (100) 100 Room Air EKG: EKG: [] Radiology/Procedures: Radiology/Procedures: [] Heart Score: C/O Chest Pain: N/A Risk Factors: Risk Factors: DM, Current or recent (<one month) smoker, HTN, HLP, family history of CAD, obesity. Risk Scores: Score 0 - 3: 2.5% MACE over next 6 weeks - Discharge Home Score 4 - 6: 20.3% MACE over next 6 weeks - Admit for Clinical Observation Score 7 - 10: 72.7% MACE over next 6 weeks - Early Invasive Strategies Course & Med Decision Making: Course & Med Decision Making Pertinent Labs and Imaging studies reviewed. (See chart for details) The patient's knee x-ray is negative for acute findings. Based on my exam, believe the patient could have a meniscal tear. All of his ligaments have solid end feel. I have encouraged him to seek further evaluation by orthopedics. For his umbilicus rash this appears to be cellulitic and I will put him on Keflex for 7 days. The itching in his groin region appears to be more dry skin related. I do not see signs of fungal infection. I have encouraged him to try cortisone cream twice a day. He is stable for discharge at this time. [] Dragon Disclaimer: Dragon Disclaimer: This electronic medical record was generated, in whole or in part, using a voice recognition dictation system. Departure Departure: Impression: Primary Impression: Right knee pain Qualified Codes: M25.561 - Pain in right knee; G89.29 - Other chronic pain Disposition: HOME / SELF CARE / HOMELESS Condition: STABLE Referrals: PCP,NO (PCP) Patient Instructions: Cellulitis, [id number], Knee Pain, [id number] Scripts Cephalexin (CEPHALEXIN) 500 Mg Tablet 1 TAB PO TID for cellulitis for 7 Days, #21 TAB Prov: VINCENZO YU DO 01/08/21 VINCENZO YU DO January 08, 2021 13:54
--- NOTE | 2021-01-08 14:02 | RAD ---
Three-view right knee study Clinical indications: Right knee joint pain. FINDINGS: No acute fracture or dislocation or lytic process is seen. No right knee joint effusion is seen. No significant arthritic change is seen. IMPRESSION: No significant osseous abnormality. Electronically signed by: Hector Pina MD (01/08/2021 1:59 PM) [id number]
== END 2021-01-08 13:59 | disposition home or self-care (01) ==
LOC: ER 12:55
DX: G89.29 Other chronic pain (principal); M25.561 Pain in right knee; L53.8 Other specified erythematous conditions; F17.210 Nicotine dependence, cigarettes, uncomplicated; F10.20 Alcohol dependence, uncomplicated; Z88.0 Allergy status to penicillin; Y90.9 Presence of alcohol in blood, level not specified
CPT/HCPCS: 73562; 99283